=== PATIENT | male | born 1935 ===

== ENCOUNTER 2017-05-16 12:17 | Day surgery (SDC) | payer MEDICARE ==
[2017-05-16] MEDS ORDERED: Sodium Chloride 0.45% 1,000 ML IV ONE (12:56)
--- NOTE | 2017-05-16 13:01 | ED PDOC ---
Arrival/HPI - General Chief Complaint: Abdominal Pain Time Seen by Provider: 05/16/17 12:39 Historian: Patient - History of Present Illness Narrative History of Present Illness (Text): 05/16/17 12:57 A 82 year old male, whose past medical history includes colon cancer, sent into the emergency department by oncologist for port placement. Plan is to admit to Dr. Ayush Gagnon for same day surgery. Patient notes mild lower abdominal discomfort for 2 days but denies any fever, chills, nausea, vomiting, diarrhea, chest pain, shortness of breath or any other complaints. Oncologist: Dr. Barfield Past Medical History - Provider Review Nursing Documentation Reviewed: Yes - Cardiac Hx Atrial Fibrillation: Yes Hx Congestive Heart Failure: Yes - Pulmonary Hx Respiratory Disorders: No - Neurological Hx Neurological Disorder: No - HEENT Hx HEENT Disorder: No - Renal Hx Renal Disorder: No - Endocrine/Metabolic Hx Endocrine Disorders: No - Hematological/Oncological Hx Blood Disorders: No - Integumentary Hx Dermatological Disorder: No - Musculoskeletal/Rheumatological Hx Musculoskeletal Disorders: No - Gastrointestinal Hx Colostomy: Yes Other/Comment: colon ca - Genitourinary/Gynecological Hx Genitourinary Disorders: No - Psychiatric Hx Psychophysiologic Disorder: No Hx Substance Use: No - Surgical History Other/Comment: colon resection - Anesthesia Hx Anesthesia: Yes Hx Anesthesia Reactions: No Family/Social History - Physician Review Nursing Documentation Reviewed: Yes Family/Social History: No Known Family HX Smoking Status: Never Smoked Hx Alcohol Use: No Hx Substance Use: No Allergies/Home Meds Allergies/Adverse Reactions: Allergies No Known Allergies Allergy (Verified 05/16/17 12:24) Home Medications: Home Meds Medication Instructions Recorded Confirmed Acetaminophen [Tylenol 325mg tab] 325 mg PO PRN PRN 05/16/17 05/16/17 Amiodarone HCl [Pacerone] 200 mg PO DAILY 05/16/17 05/16/17 Aspirin [Aspirin Chewable] 81 mg PO DAILY 05/16/17 05/16/17 Ferrous Sulfate [Slow Release Iron] 250 mg PO DAILY 05/16/17 05/16/17 Levothyroxine [Synthroid] 75 mcg PO DAILY 05/16/17 05/16/17 Potassium Chloride [Klor-Con 10 meq PO DAILY 05/16/17 05/16/17 Sprinkle] Review of Systems - Physician Review All systems were reviewed & negative as marked: Yes - Review of Systems Constitutional: absent: Fevers, Night Sweats Respiratory: absent: SOB Cardiovascular: absent: Chest Pain Gastrointestinal: Abdominal Pain (left lower abdomen). absent: Diarrhea, Nausea , Vomiting Physical Exam Vital Signs Reviewed: Yes Vital Signs Temp Pulse Resp BP Pulse Ox 05/16/17 18:45 97.6 F 55 L 18 151/82 H 95 05/16/17 18:11 97.6 F 57 L 16 146/75 99 05/16/17 17:56 97.6 F 55 L 16 143/73 99 05/16/17 17:41 97.6 F 57 L 16 140/71 99 05/16/17 17:26 97.6 F 60 16 145/71 99 05/16/17 17:11 97.6 F 66 16 146/71 99 05/16/17 12:31 97.9 F 59 L 18 142/67 100 05/16/17 12:25 97.9 F 63 18 142/67 99 Temperature: Afebrile Blood Pressure: Normal Pulse: Regular Respiratory Rate: Normal Appearance: Positive for: Well-Appearing, Non-Toxic, Comfortable Pain Distress: None Mental Status: Positive for: Alert and Oriented X 3 - Systems Exam Head: Present: Atraumatic, Normocephalic Pupils: Present: PERRL Extroacular Muscles: Present: EOMI Conjunctiva: Present: Normal Mouth: Present: Moist Mucous Membranes Neck: Present: Normal Range of Motion Respiratory/Chest: Present: Clear to Auscultation, Good Air Exchange. No: Respiratory Distress, Accessory Muscle Use Cardiovascular: Present: Regular Rate and Rhythm, Normal S1, S2. No: Murmurs Abdomen: Present: Normal Bowel Sounds, Other (Functioning colostomy bag to left lower quadrant). No: Tenderness, Distention, Peritoneal Signs Back: Present: Normal Inspection Upper Extremity: Present: Normal Inspection. No: Cyanosis, Edema Lower Extremity: Present: Normal Inspection. No: Edema Neurological: Present: GCS=15, CN II-XII Intact, Speech Normal Skin: Present: Warm, Dry, Normal Color. No: Rashes Psychiatric: Present: Alert, Oriented x 3, Normal Insight, Normal Concentration Medical Decision Making ED Course and Treatment: 05/16/17 12:57 Impression: A 82 year old male sent in for port placement. Patient notes mild left lower abdominal pain. Plan: -- Labs -- IV fluids -- Reassess and disposition Progress Notes: - Lab Interpretations Lab Results: 05/16/17 13:00 05/16/17 13:00 Lab Results 05/16/17 13:00: Sodium 141, Potassium 4.0, Chloride 106, Carbon Dioxide 25, Anion Gap 15, BUN 13, Creatinine 0.7 L, Est GFR ( Amer) > 60, Est GFR ( Non-Af Amer) > 60, Random Glucose 83, Calcium 9.9, Total Bilirubin 0.6, AST 32, ALT 22, Alkaline Phosphatase 99, Total Protein 9.2 H, Albumin 4.4, Globulin 4.8 , Albumin/Globulin Ratio 0.9 L 05/16/17 13:00: PT 13.1 H, INR 1.14 H 05/16/17 13:00: WBC 8.8, RBC 4.62, Hgb 12.4 L, Hct 38.8 L, MCV 84.0, MCH 26.8, MCHC 32.0, RDW 21.2 H, Plt Count 296, MPV 9.3, Gran % 63.3, Lymph % (Auto) 21.2 L, Shannon % (Auto) 8.4 H, Eos % (Auto) 6.6 H, Baso % (Auto) 0.5, Gran # 5.56, Lymph # (Auto) 1.9, Shannon # (Auto) 0.7 H, Eos # (Auto) 0.6, Baso # (Auto) 0.04 I have reviewed the lab results: Yes - RAD Interpretation Radiology Orders: 05/16/17 16:40 CAR PERIPHERAL VASCULAR ORDER [VASCULAR] Routine - Medication Orders Current Medication Orders: Acetaminophen (Tylenol 325mg Tab) 650 mg PO Q4 PRN PRN Reason: Pain, Mild (1-3) Sodium Chloride (Sodium Chloride 0.45%) 1,000 mls @ 100 mls/hr IV .Q10H ONE Stop: 05/16/17 22:55 Last Admin: 05/16/17 13:18 Dose: 100 mls/hr eMAR Start Stop Document 05/16/17 13:18 GMD (Rec: 05/16/17 13:18 GMD [id number]) Intravenous Solution Start Date 05/16/17 Start Time 13:18 Ondansetron HCl (Zofran Inj) 4 mg IVP Q6H PRN PRN Reason: Nausea/Vomiting Oxycodone/Acetaminophen (Percocet 5/325 Mg Tab) 1 tab PO Q4H PRN PRN Reason: Pain, moderate (4-7) Stop: 05/19/17 17:03 - Scribe Statement The provider has reviewed the documentation as recorded by the [place]ivo Cohi Provider Scribe Attestation: All medical record entries made by the Scribe were at my direction and personally dictated by me. I have reviewed the chart and agree that the record accurately reflects my personal performance of the history, physical exam, medical decision making, and the department course for this patient. I have also personally directed, reviewed, and agree with the discharge instructions and disposition. Disposition/Present on Arrival - Present on Arrival Any Indicators Present on Arrival: No History of DVT/PE: No History of Uncontrolled Diabetes: No Urinary Catheter: No History of Decub. Ulcer: No History Surgical Site Infection Following: None - Disposition Have Diagnosis and Disposition been Completed?: Yes Diagnosis: Colon cancer Disposition: HOSPITALIZED Disposition Time: 19:00 Patient Plan: Other (same day surgery) Condition: GOOD
[2017-05-16 13:07] VITALS: BMI 21.6
[2017-05-16 13:24] LABS: BASO # 0.04 K/mm3 (0.0-2.0); BASO % 0.5 % (0.0-3.0); EOS # 0.6 (0.0-0.7); EOS % 6.6 % (1.5-5.0); GRAN # 5.56 (1.4-6.5); GRAN % 63.3 % (50.0-68.0); HEMOGLOBIN 12.4 g/dL (14.0-18.0); LYMPH # 1.9 (1.2-3.4); LYMPH % 21.2 % (22.0-35.0); MEAN CORPUSCULAR HEMOGLOBIN 26.8 pg (25.0-35.0); MEAN PLATELET VOLUME 9.3 fl (7.0-11.0); MONO # 0.7 (0.1-0.6); MONO % 8.4 % (1.0-6.0); RBC 4.62 10^6/uL (3.5-6.1); RED CELL DISTRIBUTION WIDTH 21.2 % (11.5-14.5); WHITE BLOOD COUNT 8.8 10^3/ul (4.5-11.0)
[2017-05-16 13:31] LABS: INR 1.14 (0.93-1.08); PROTHROMBIN TIME 13.1 SECONDS (9.4-12.5)
[2017-05-16 13:32] LABS: ALB/GLOB RATIO 0.9 (1.1-1.8); ALBUMIN 4.4 g/dL (3.0-4.8); ALT/SGPT 22 U/L (7-56); AST/SGOT 32 U/L (17-59); BLOOD UREA NITROGEN 13 mg/dL (7-21); CALCIUM 9.9 mg/dL (8.4-10.5); GFR AFRICAN-AMERICAN > 60; GFR NON-AFRICAN AMERICAN > 60
[2017-05-16] MEDS ORDERED: Lidocaine 2% Inj (20ml) ONE (14:35)
[2017-05-16] MEDS ORDERED: Midazolam 2 MG/2 ML VIAL ONE ×2 (14:38→16:08)
[2017-05-16] MEDS ORDERED: Iodixanol 320 MG/ML 100 ML BOTTLE IV ONE (16:08)
[2017-05-16] MEDS ORDERED: Oxycodone/Acetaminophen 5/325 mg Tab PO PRN (17:02)
[2017-05-16 17:54] VITALS: TEMP 97.6
[2017-05-16 18:52] VITALS: BP 151/82; PULSE 55; RESP 18; O2SAT 95
== END 2017-05-16 19:20 | disposition home or self-care (01) ==
LOC: ED 12:17 → SDS 14:20
PROVIDERS: ATTEND Radiology Vascular & Interventional Radiology
DX: C18.9 Malignant neoplasm of colon, unspecified (principal); I48.91 Unspecified atrial fibrillation; I50.9 Heart failure, unspecified; E03.9 Hypothyroidism, unspecified; R10.32 Left lower quadrant pain
CPT/HCPCS: 36561; 76937; 77001; 80053; 85025; 85610; 99152; 99153; 99285; C1760; C1769 ×2; C1788; C1887; J0690; J1644; J2250; J2405; J3010; J7030; Q9967